=== PATIENT | female | born 1990 | race Caucasian/White ===

== ENCOUNTER 2022-04-21 14:58 | Emergency (ER) | payer BC, OTHER ==
--- OUTSIDE RECORDS SUMMARY | 2022-04-21 15:08 | XMS REPORT | Continuity of Care Document ---
:1990 Author Organization [facility] t Address [address] [place] [address] Care Team Providers Name Role Phone Unavailable Unavailable Unavailable Payers Payer Name Policy Type Policy Number Effective Date Expiration Date S ource Problems This patient has no known problems. Allergies, Adverse Reactions, Alerts Allergy Allergy Status Severity Reaction(s) Onset Inactive Treating Comm ents Source Name Type Date Date Clinician No Known DA Active U 2015-03 [facility] [place] Medications This patient has no known medications. Procedures This patient has no known procedures. Results Test Description Test Time Test Comments Results Result Comments Source CBC W/AUTO DIFF 2018-04-30 07:40:00 Test Item Value Reference Range Interpretation Comme nts WHITE BLOOD CELL (test code = WBC) 14.0 K/mm3 6.6-12.1 H RED BLOOD CELL (test code = RBC) 3.16 M/mm3 3.45-5.01 L HEMOGLOBIN (test code = HGB) 9.4 g/dL 10.7-13.9 L HEMATOCRIT (test code = HCT) 29.6 % 32.1-42.1 L MEAN CELL VOLUME (test code = MCV) 94 fL 84.1-94.8 N MEAN CELL HGB (test code = MCH) 29.7 pg 27-35 N MEAN CELL HGB CONCETRATION (test code = MCHC) 31.8 gm/dL 32.2-34. 1 L RED CELL DISTRIBUTION WIDTH (test code = RDW) 14.6 % 12.4-16. 5 N PLATELET COUNT (test code = PLT) 180 K/mm3 133-385 N IMMATURE PLATELET FRACTION (test code = IPF) 0.0 % 0.0-10.8 N MEAN PLATELET VOLUME (test code = MPV) 10.9 fl 9.1-12.7 N NEUTROPHIL % (test code = NT%) 76.5 % 56.5-79.4 N LYMPHOCYTE % (test code = LY%) 14.9 % 14.3-34.3 N MONOCYTE % (test code = MO%) 7.5 % 5.1-10.4 N EOSINOPHIL % (test code = EO%) 0.4 % 0.1-3.0 N BASOPHIL % (test code = BA%) 0.1 % 0.1-1.0 N NEUTROPHIL # (test code = NT#) 10.7 K/mm3 LYMPHOCYTE # (test code = LY#) 2.1 K/mm3 MONOCYTE # (test code = MO#) 1.1 K/mm3 EOSINOPHIL # (test code = EO#) 0.05 K/mm3 BASOPHIL # (test code = BA#) 0.0 K/mm3 RBC MORPHOLOGY REQUIRED (test code = RBCM) NORMAL NORMAL PLATELET MORPHOLOGY REQUIRED (test code = PLTMR) NORMAL VAL L URINALYSIS W/O [id number] 12:26:00 Test Item Value Reference Range Interpretation Comments UA GLUCOSE DIPSTICK (test code = NEGATIVE NEGATIVE DGLUU) UA KETONE DIPSTICK (test code = NEGATIVE NEGATIVE KETU) UA PROTEIN DIPSTICK (test code = NEGATIVE NEGATIVE PROU) IS NURSE PERFORMING TEST? NAG HEPATITIS B [id number] 12:11:00 Test Item Value Reference Range Interpretation Comments AG HEPATITIS B SURFACE (test code NONREACTIVE NONREACTIVE = HBSAG) IS CONSENT FORM SIGNED FOR HIV TESTING? TELLOB HEPATITIS C [id number] 12:11:00 Test Item Value Reference Range Interpretation Comments AB HEPATITIS C (test code = NONREACTIVE NONREACTIVE HCVAB) SIGNAL TO CUTOFF (test code = 0.10 <0.80 N CUTOFF) IS CONSENT FORM SIGNED FOR HIV TESTING? BRYCE [id number] 12:11:00 Test Item Value Reference Range Interpretation Comments AB TREPONEMA (test code = TREPAB) NONREACTIVE NONREACTIVE IS CONSENT FORM SIGNED FOR HIV TESTING? YAB HIV 1 12:11:00 Test Item Value Reference Range Interpretation Comments AB HIV 1 2 (test NONREACTIVE NONREACTIVE Done by [facility] code = [id number]) 4th Gen HIV Ag/Ab Combo Screen IS CONSENT FORM SIGNED FOR HIV TESTING? YAG HEPATITIS B [id number] 11:42:00 Test Item Value Reference Range Interpretation Comments AG HEPATITIS B SURFACE (test code NONREACTIVE NONREACTIVE = HBSAG) IS CONSENT FORM SIGNED FOR HIV TESTING? YAB HEPATITIS C [id number] 11:42:00 Test Item Value Reference Range Interpretation Comments AB HEPATITIS C (test code = HCVAB) NONREACTIVE SIGNAL TO CUTOFF (test code = CUTOFF) <0.80 IS CONSENT FORM SIGNED FOR HIV TESTING? YAB [id number] 11:42:00 Test Item Value Reference Range Interpretation Comments AB TREPONEMA (test code = TREPAB) NONREACTIVE NONREACTIVE IS CONSENT FORM SIGNED FOR HIV TESTING? YAB HIV 1 11:42:00 Test Item Value Reference Range Interpretation Comments AB HIV 1 2 (test code = [id number]) NONREACTIVE IS CONSENT FORM SIGNED FOR HIV TESTING? YCBC W/AUTO [id number] 11:23:00 Test Item Value Reference Range Interpretation Comments WHITE BLOOD CELL (test code = WBC) 6.7 K/mm3 6.6-12.1 N RED BLOOD CELL (test code = RBC) 4.25 M/mm3 3.45-5.01 N HEMOGLOBIN (test code = HGB) 12.6 g/dL 10.7-13.9 N HEMATOCRIT (test code = HCT) 39.2 % 32.1-42.1 N MEAN CELL VOLUME (test code = MCV) 92 fL 84.1-94.8 N MEAN CELL HGB (test code = MCH) 29.6 pg 27-35 N MEAN CELL HGB CONCETRATION (test 32.1 gm/dL 32.2-34.1 L code = MCHC) RED CELL DISTRIBUTION WIDTH (test 14.6 % 12.4-16.5 N code = RDW) PLATELET COUNT (test code = PLT) 205 K/mm3 133-385 N IMMATURE PLATELET FRACTION (test 0.0 % 0.0-10.8 N code = IPF) MEAN PLATELET VOLUME (test code = 10.7 fl 9.1-12.7 N MPV) NEUTROPHIL % (test code = NT%) 62.2 % 56.5-79.4 N LYMPHOCYTE % (test code = LY%) 24.5 % 14.3-34.3 N MONOCYTE % (test code = MO%) 10.5 % 5.1-10.4 H EOSINOPHIL % (test code = EO%) 0.7 % 0.1-3.0 N BASOPHIL % (test code = BA%) 0.6 % 0.1-1.0 N NEUTROPHIL # (test code = NT#) 4.2 K/mm3 LYMPHOCYTE # (test code = LY#) 1.7 K/mm3 MONOCYTE # (test code = MO#) 0.7 K/mm3 EOSINOPHIL # (test code = EO#) 0.05 K/mm3 BASOPHIL # (test code = BA#) 0.0 K/mm3 RBC MORPHOLOGY REQUIRED (test code NORMAL NORMAL = RBCM) PLATELET MORPHOLOGY REQUIRED (test NORMAL NORMAL code = PLTMR)
[2022-04-21 16:18] LABS: Urine Blood Trace-intact (Negative); Urine Glucose Negative (Negative); Urine Protein Negative (Negative); Urine pH 6.5 (5.0-7.0)
[2022-04-21 16:31] LABS: Absolute Lymphocytes (CBC) 2.9 K/uL (0.7-4.9); Hematocrit 42.8 % (36.0-45.0); Lymphocytes % 43.3 % (15.3-44.8); MCV 89.7 fL (80-100); MPV 8.7 fL (7.6-11.3); RBC Red Blood Cell Count 4.77 M/uL (3.86-4.86)
--- NOTE | 2022-04-21 16:32 | RAD REPORT ---
EXAM DESCRIPTION: CT - Head Brain Wo Cont - 04/21/2022 3:39 pm CLINICAL HISTORY: Headache. Left arm numbness. Hypertension. COMPARISON: Head Brain Wo Cont dated 04/04/2019; HEAD BRAIN W O CONTRAST dated 03/28/2009 TECHNIQUE: Noncontrast head CT images ad were obtained without IV contrast. Multiplanar reformats we re generated and reviewed. All CT scans are performed using dose optimization technique as appropriate and may include automated exposure control or mA/KV adjustment according to patient size. FINDINGS: No intracranial hemorrhage, mass, or edema. Midline structures are unremarkable. Normal ventricular caliber for age. Hines-white matter differentiation is preserved, without evidence of acute infarct. No abnormal extra- axial fluid collections. Mastoid air cells and visualized portions of the paranasal sinuses are clear. No acute bony findings. IMPRESSION: No evidence of an acute intracranial process.
[2022-04-21 16:38] LABS: Protime INR 1.01
[2022-04-21 16:41] LABS: Barbiturates NEGATIVE (NEGATIVE); Benzodiazepines NEGATIVE (NEGATIVE); Cocaine NEGATIVE (NEGATIVE); METHAMPHETAM POSITIVE (NEGATIVE); Methadone NEGATIVE (NEGATIVE); Opiates NEGATIVE (NEGATIVE); Phencyclidine NEGATIVE (NEGATIVE); THC Cannibis NEGATIVE (NEGATIVE)
[2022-04-21 17:03] LABS: BUN Blood Urea Nitrogen 12 mg/dL (7-18); Bicarbonate 26 mmol/L (21-32); Glomerular Filtration Rate 79 ml/min (=/>90); Glucose Level 89 mg/dL (74-106); Magnesium 2.2 mg/dL (1.6-2.4); Potassium 3.3 mmol/L (3.5-5.1); Sodium Level 139 mmol/L (136-145)
[2022-04-21 17:04] LABS: Troponin High Sensitivity < 3.0 pg/mL (<58.9)
[2022-04-21] MEDS ORDERED: ACETAMINOPHEN 500 MG TAB ONE (17:29)
[2022-04-21] MEDS ORDERED: METOCLOPRAMIDE 10 MG/2mL INJ ONE (17:29)
[2022-04-21] MEDS ORDERED: TENECTEPLASE 50 MG/10 ML VIAL IV ONE (17:44)
--- NOTE | 2022-04-21 18:08 | RAD REPORT ---
[facility] DES[facility]31 [facility] CLINICAL HISTORY: CHEST PAIN COMPARISON: CHEST SINGLE VIEW dated 02/06/2012 TECHNIQUE: Portable AP view of the chest. FINDINGS: The lungs are clear. No pneumothorax or effusion. The cardiomediastinal contours are unrem arkable. IMPRESSION: No acute cardiopulmonary process.
--- NOTE | 2022-04-21 18:34 | ER ---
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 Coronavirus screen: At this time, the client does not indicate any symptoms associated with coronavirus-19. Ebola Screen: No symptoms or risks identified at this time. Initial Sepsis Screen: Does the patient meet any 2 criteria? No. Patient's initial sepsis screen is negative. Does the patient have a suspected source of infection? No. Patient's initial sepsis screen is negative. Risk Assessment: Do you want to hurt yourself or someone else? Patient reports no desire to harm self or others. Onset of symptoms was April 21, 2022. 15:26 Method Of Arrival: Ambulatory ap3 15:26 Acuity: NELA 2 ap3 Triage Assessment: 15:30 General: Appears in no apparent distress. Behavior is calm, cooperative. Pain: ap3 Complains of pain in headache. Neuro: Level of Consciousness is awake, alert, obeys commands, Oriented to person, place, time, situation, Gait is steady. Cardiovascular: Patient's skin is warm and dry. Respiratory: Airway is patent Respiratory effort is even, unlabored, Respiratory pattern is regular, symmetrical. DIRECTOR INDUSTRIAL NURSING: 15:31 LMP 04/20/2022 ap3 Historical: - Allergies: 15:29 No Known Allergies; ap3 - Home Meds: 15:29 Lexapro Oral [Active]; Adderall XR Oral [Active]; BuSpar Oral [Active]; Marylu Oral ap3 [Active]; control [Active]; - PMHx: 15:29 Heart Murmur; Seizures; syncope; ap3 - Immunization history:: Client reports having NOT received the Covid vaccine. - Social history:: Smoking status: Patient denies any tobacco usage or history of. Patient uses. Screenin:31 Abuse screen: Denies threats or abuse. Nutritional screening: No deficits noted. ap3 Tuberculosis screening: No symptoms or risk factors identified. 16:57 [facility] ED Fall Risk Assessment (Adult) History of falling in the last 3 months, bp including since admission No falls in past 3 months (0 pts). Assessment: 15:30 General: SEE TRIAGE NOTE. bp 16:56 Reassessment: PT RETURNED FROM CT. PROVIDER AT B/S. PER NEURO, TNKASE RECOMMENDED. bp 17:30 Reassessment: CONSENT FOR TNKASE SIGNED AND WITNESSED. TNKASE ADMINISTERED. NIHSS 1. bp Neuro: 20:46 General: Behavior is calm, cooperative, appropriate for age. Pain: Denies pain. Neuro: tw5 Level of Consciousness is awake, alert, obeys commands, Oriented to person, place, time, situation. 22:00 Neuro: Level of Consciousness is awake, alert, obeys commands, Oriented to person, jb4 place, time, situation, Table Games Dual Rate Supervisor are equal bilaterally Moves all extremities. Full function Speech is normal, Facial symmetry appears normal, Pupils are PERRLA, Intact Tingling in left arm. 22:00 Reassessment: Pt reports worsening neck pain, provider notified, see MAR for orders. jb4 22:05 Reassessment: Patient appears in no apparent distress at this time. Patient and/or jb4 family updated on plan of care and expected duration. Pain level reassessed. Patient is alert, oriented x 3, equal unlabored respirations, skin warm/dry/pink. 22:15 Reassessment: attempted to call report to [facility], instructed to call back in 20 jb4 minutes. 22:55 General: "My neck pain is getting worse." Provider notified. Dr. Adame evaluated her tw5 prior to her departure . Vital Signs: 15:26 BP 175 / 104; Pulse 88; Resp 17; Temp 98.8; Pulse Ox 99% ; Weight 72.57 kg; Height 5 ap3 ft. 7 in. (170.18 cm); 17:00 BP 156 / 95; Pulse 78; Resp 16; Pulse Ox 100% ; bp 17:30 BP 156 / 99; Pulse 82; Resp 16; Pulse Ox 100% ; bp 22:00 BP 129 / 81; Pulse 87; Resp 16; Pulse Ox 100% on R/A; jb4 15:26 Body Mass Index 25.06 (72.57 kg, 170.18 cm) ap3 NIH Stroke Scale Scores: 16:30 NIHSS Score: 1 cp 17:30 NIHSS Score: 1 bp 22:11 NIHSS Score: 0 jb4 ED Course: 15:00 Patient arrived in ED. am2 15:15 Joon Taylor PA is PHCP. cp 15:15 Joon Tiwari MD is Attending Physician. cp 15:29 Triage completed. ap3 15:31 Arm band placed on right wrist. ap3 16:01 Joel Ivy, YASH is Primary Nurse. bp 16:30 Urine --Ancillary (enter results) Sent. bp 16:57 Patient has correct armband on for positive identification. Bed in low position. Call bp light in reach. Side rails up X2. Adult w/ patient. 16:57 Inserted saline lock: 20 gauge in right forearm, using aseptic technique. Blood bp collected. 18:32 Glendy Morales PA-C is Hospitalizing Provider. cp 19:10 Patricio Garcia is Hospitalizing Provider. cp 20:50 SARS RAPID Sent. tw5 22:00 No provider procedures requiring assistance completed. Patient transferred, IV remains jb4 in place. Administered Medications: 16:14 CANCELLED (Physician Discretion): Labetalol 10 mg IV at calculated rate once cp 16:30 Drug: Reglan (metoCLOPramide) 10 mg Route: IVP; Site: right forearm; bp 16:30 Drug: Tylenol 1000 mg Route: PO; bp 17:30 Drug: TNK FOR STROKE - Tenecteplase 0.25 mg/kg {Co-Signature: yonatan (Jeanie Ma bp RN).} Route: IV; Rate: per protocol; Site: right antecubital; 18:45 Follow up: IV Status: Completed infusion bp 18:30 Drug: Potassium Effervescent Tablet 50 mEq Route: PO; bp 18:45 Follow up: Response: No adverse reaction bp 18:30 Drug: foLIC Acid 1 mg Route: IVPB; Site: right antecubital; bp 18:45 Follow up: IV Status: Completed infusion; IV Intake: 50ml bp 22:05 Drug: Wall (HYDROcodone-acetaminophen) (7.5 mg-325 mg) 1 tabs Route: PO; jb4 22:56 Follow up: Response: No adverse reaction; Pain is unchanged, physician notified tw5 22:56 Drug: morphine 4 mg Route: IVP; Infused Over: 4 mins; Site: right antecubital; tw5 22:56 Drug: Zofran (Ondansetron) 4 mg Route: IVP; Site: right antecubital; tw5 Medication: 22:56 VIS not applicable for this client. tw5 Intake: 18:45 IV: 50ml; Total: 50ml. bp Outcome: 18:33 Decision to Hospitalize by Provider. cp 20:36 ER care complete, transfer ordered by MD. cp 22:56 Transferred by ground EMS tw5 22:56 Condition: good 22:56 Instructed on the need for transfer, Demonstrated understanding of instructions. 23:02 Patient left the ED. tw5 NIH Stroke Scale - NIH Stroke Score Date: 04/21/2022 Time: 16:30 Total Score = 1 1a. Level of Consciousness (LOC) - 0(Alert) 1b. Level of Consciousness (LOC) (Month \\T\\ Age) - 0(Both) 1c. LOC Commands (Open \\T\\ Closes Eyes/Employment Law Specialist) - 0(Both) 2. Best Gaze (Lateral Gaze Paresis) - 0(Normal) 3. Visual Field Loss - 0(No visual loss) 4. Facial Palsy - 0(Normal) 5a. Left Arm: Motor (10-second hold) - 0(No drift) 5b. Right Arm: Motor (10-second hold) - 0(No drift) 6a. Left Leg: Motor (5-second hold - always test supine) - 0(No drift) 6b. Right Leg: Motor (5-second hold - always test supine) - 0(No drift) 7. Limb Ataxia (finger/nose \\T\\ heel/suresh - test with eyes open) - 0(Absent) 8. Sensory Loss (pinprick arms/legs/face) - 1(Mild to moderate loss) 9. Best Language: Aphasia (description/naming/reading) - 0(No aphasia) 10. Dysarthria (speech clarity - read or repeat words) - 0(Normal) 11. Extinction and Inattention (visual/tactile/auditory/spatial/personal) - 0(No abnormality) Initials: cp NIH Stroke Scale - NIH Stroke Score Date: 04/21/2022 Time: 17:30 Total Score = 1 1a. Level of Consciousness (LOC) - 0(Alert) 1b. Level of Consciousness (LOC) (Month \\T\\ Age) - 0(Both) 1c. LOC Commands (Open \\T\\ Closes Eyes/Employment Law Specialist) - 0(Both) 2. Best Gaze (Lateral Gaze Paresis) - 0(Normal) 3. Visual Field Loss - 0(No visual loss) 4. Facial Palsy - 0(Normal) 5a. Left Arm: Motor (10-second hold) - 0(No drift) 5b. Right Arm: Motor (10-second hold) - 0(No drift) 6a. Left Leg: Motor (5-second hold - always test supine) - 0(No drift) 6b. Right Leg: Motor (5-second hold - always test supine) - 0(No drift) 7. Limb Ataxia (finger/nose \\T\\ heel/suresh - test with eyes open) - 0(Absent) 8. Sensory Loss (pinprick arms/legs/face) - 1(Mild to moderate loss) 9. Best Language: Aphasia (description/naming/reading) - 0(No aphasia) 10. Dysarthria (speech clarity - read or repeat words) - 0(Normal) 11. Extinction and Inattention (visual/tactile/auditory/spatial/personal) - 0(No abnormality) Initials: bp NIH Stroke Scale - NIH Stroke Score Date: 04/21/2022 Time: 22:11 Total Score = 0 1a. Level of Consciousness (LOC) - 0(Alert) 1b. Level of Consciousness (LOC) (Month \\T\\ Age) - 0(Both) 1c. LOC Commands (Open \\T\\ Closes Eyes/Employment Law Specialist) - 0(Both) 2. Best Gaze (Lateral Gaze Paresis) - 0(Normal) 3. Visual Field Loss - 0(No visual loss) 4. Facial Palsy - 0(Normal) 5a. Left Arm: Motor (10-second hold) - 0(No drift) 5b. Right Arm: Motor (10-second hold) - 0(No drift) 6a. Left Leg: Motor (5-second hold - always test supine) - 0(No drift) 6b. Right Leg: Motor (5-second hold - always test supine) - 0(No drift) 7. Limb Ataxia (finger/nose \\T\\ heel/suresh - test with eyes open) - 0(Absent) 8. Sensory Loss (pinprick arms/legs/face) - 0(Normal) 9. Best Language: Aphasia (description/naming/reading) - 0(No aphasia) 10. Dysarthria (speech clarity - read or repeat words) - 0(Normal) 11. Extinction and Inattention (visual/tactile/auditory/spatial/personal) - 0(No abnormality) Initials: jb4 Signatures: Joon Taylor PA PA cp Bryson, James RN RN jb4 Gisel Bill am2 Joel Ivy RN RN bp Gisel Shipley RN RN ap3 Lanie Taveras tw5 Jeanie Ma RN ph Corrections: (The following items were deleted from the chart) 22:13 22:00 Neuro: Level of Consciousness is awake, alert, obeys commands, Oriented jb4 to person, place, time, situation, Table Games Dual Rate Supervisor are equal bilaterally Moves all extremities. Full function Speech is normal, Facial symmetry appears normal, Pupils are PERRLA, Intact Tingling in left arm jb4
--- NOTE | 2022-04-21 18:34 | EDPHYS ---
Physician Documentation [facility] Name: Shalonda Mederos Age: 31 yrs Sex: Female : 1990 Arrival Date: 04/21/2022 Time: 15:00 Bed 7 Private MD: ED Physician Joon Tiwari HPI: 04/21 15:35 This 31 yrs old Female presents to ER via Ambulatory with complaints of Numbness Of Arm cp - left, High Blood Pressure. 15:35 The patient's problem is reported as paresthesias, in left upper extremity. cp 15:35 Onset: The symptoms/episode began/occurred today, at 1430. Duration: The episode is cp continuous. Context: symptoms became apparent on April 21, 2022, at 14:30. occurred at school, Possible contributing factors include: headache for several days, increased stress while going through divorce. Associated signs and symptoms: Pertinent positives: blurred vision, weakness, elevated blood pressure, Pertinent negatives: abdominal pain, chest pain, seizure, shortness of breath. Severity of symptoms: in the emergency department the symptoms are unchanged. Patient's baseline: Neuro: alert and fully oriented, Motor: no deficits, Ambulation: walks without assistance, Speech: normal. 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 - Social history:: Smoking status: Patient denies any tobacco usage or history of. Patient uses. ROS: 15:40 Constitutional: Negative for body aches, chills, fever, poor PO intake. cp 15:40 Eyes: Positive for blurry vision, Negative for discharge, pain, redness, vision loss. cp 15:40 ENT: Negative for drainage from ear(s), ear pain, sore throat, difficulty swallowing, difficulty handling secretions. 15:40 Cardiovascular: Negative for chest pain, edema, palpitations. 15:40 Respiratory: Negative for cough, shortness of breath, wheezing. 15:40 Abdomen/GI: Negative for abdominal pain, vomiting, diarrhea, constipation. 15:40 : Negative for urinary symptoms. 15:40 Neuro: Positive for headache, numbness, weakness, of the left arm, Negative for altered mental status, dizziness, seizure activity, syncope. 15:40 All other systems are negative. Exam: 15:43 Constitutional: The patient appears in no acute distress, alert, awake, cp non-diaphoretic, non-toxic, well developed, well nourished. 15:43 Head/Face: Normocephalic, atraumatic. cp 15:43 Eyes: Periorbital structures: appear normal, Pupils: equal, round, and reactive to light and accomodation, Extraocular movements: intact throughout, Conjunctiva: normal, no exudate, no injection, Sclera: no appreciated abnormality, Lids and lashes: appear normal, bilaterally. 15:43 ENT: External ear(s): are unremarkable, Nose: is normal, Mouth: Lips: moist, Oral mucosa: pink and intact, moist, Posterior pharynx: Airway: no evidence of obstruction, patent, swelling, is not appreciated, erythema, is not appreciated, exudate, is not appreciated. 15:43 Neck: ROM/movement: is normal, is supple, without pain, no range of motions limitations, no meningismus. 15:43 Chest/axilla: Inspection: normal. 15:43 Cardiovascular: Rate: normal, Rhythm: regular, Heart sounds: murmur, systolic, Edema: is not appreciated, JVD: is not appreciated. 15:43 Respiratory: the patient does not display signs of respiratory distress, Respirations: normal, no use of accessory muscles, no retractions, labored breathing, is not present, Breath sounds: are clear throughout, no decreased breath sounds, no stridor, no wheezing. 15:43 Abdomen/GI: Inspection: abdomen appears normal, Palpation: abdomen is soft and non-tender, in all quadrants. 15:43 Back: pain, is absent, ROM is normal. 15:43 Skin: cellulitis, is not appreciated, no rash present. 15:43 Neuro: Orientation: to person, place \T\ time. Mentation: is normal, Cerebellar function: Romberg testing is negative, normal finger to nose testing, heel to suresh testing is normal, Motor: moves all fours, no focal deficits, reports left arm feels weaker than right, Sensation: numbness, that is moderate, of the left arm. 16:26 ECG was reviewed by the Attending Physician. cp 16:35 Radiologist reports: no acute findings cp Vital Signs: 15:26 BP 175 / 104; Pulse 88; Resp 17; Temp 98.8; Pulse Ox 99% ; Weight 72.57 kg; Height 5 ap3 ft. 7 in. (170.18 cm); 17:00 BP 156 / 95; Pulse 78; Resp 16; Pulse Ox 100% ; bp 17:30 BP 156 / 99; Pulse 82; Resp 16; Pulse Ox 100% ; bp 22:00 BP 129 / 81; Pulse 87; Resp 16; Pulse Ox 100% on R/A; jb4 15:26 Body Mass Index 25.06 (72.57 kg, 170.18 cm) ap3 NIH Stroke Scale Scores: 16:30 NIHSS Score: 1 cp 17:30 NIHSS Score: 1 bp 22:11 NIHSS Score: 0 jb4 MDM: 15:49 Patient medically screened. tammy 16:29 ED course: consult with DR Mei who recommends CT stroke protocol and TNK if cp patient has deficit. 16:56 ED course: Discussed results of negative head CT, EKG negative for arrythmia and cp recommendation of DR Mei for administration of TNK. Patient would like to discuss to mother at this time and will notify YASH Maldonado of decision. 17:15 ED course: Discussed recommendation of TNK by neurology, DR Mei with risks of cp treatment and not treating. Patient reports continued numbness left arm and weakness. Patient requests to speak with DR Tiwari, before deciding on TNK treatment. 17:25 ED course: Patient requested to speak with attending physician DR Tiwari who cp discussed TNK treatment with patient and recommends administration of TNK. Patient agrees with treatment plan. 18:56 ED course: reevaluation: Patient reports weakness resolved and numbness of arm markedly cp improved but not resolved at this time. Will admit and continue to monitor. 20:35 Data reviewed: vital signs, nurses notes, lab test result(s), EKG, radiologic studies, cp CT scan, plain films. 20:35 Consideration of Admission/Observation transfer for neurosurgery consultation. cp Management of patient was discussed with the following: Medical Assembly: DR Mei. I considered the following discharge prescriptions or medication management in the emergency department Medications were administered in the Emergency Department. See MAR. Discussion of test interpretation with radiology: I had a discussion with radiology regarding a test interpretation. results of CT neck angio that showed concern for dissection at V2. Counseling: I had a detailed discussion with the patient and/or guardian regarding: the historical points, exam findings, and any diagnostic results supporting the discharge/admit diagnosis, lab results, radiology results, the need to transfer to another facility, [facility] does not immediately have the required specialist. Response to treatment: the patient's symptoms have markedly improved after treatment. 22:05 ED course: consult with DR Dorman, neurology \T\[facility], after discussion of labs cp and radiology results, care given with administration of TNK and patient's symptom improvement, he will accept for transfer. 04/21 15:30 Order name: Basic Metabolic Panel cp 04/21 15:30 Order name: CBC with Diff cp 04/21 15:30 Order name: D-Dimer cp 04/21 15:30 Order name: Magnesium cp 04/21 15:30 Order name: PT-INR cp 04/21 15:30 Order name: Troponin HS cp 04/21 15:30 Order name: UDS cp 04/21 16:19 Order name: Urine Dipstick-Ancillary; Complete Time: 16:40 EDMS 04/21 16:24 Order name: Urine --Ancillary (enter results) em1 04/21 16:32 Order name: Urine --Ancillary; Complete Time: 16:40 EDMS 04/21 16:33 Order name: CBC with Automated Diff; Complete Time: 16:40 EDMS 04/21 16:39 Order name: Protime (+INR); Complete Time: 16:40 EDMS 04/21 16:39 Order name: D-Dimer; Complete Time: 16:40 EDMS 04/21 16:42 Order name: Urine Drug Screen; Complete Time: 17:44 EDMS 04/21 17:44 Interpretation: Normal except: METHAMPHETAMINE POSITIVE. cp 04/21 15:30 Order name: XRAY Chest (1 view) cp 04/21 15:59 Order name: MRI - Brain Wo Cont cp 04/21 16:29 Order name: CT Stroke Brain w/o Contrast cp 04/21 16:32 Order name: CT; Complete Time: 16:40 EDMS 04/21 16:41 Interpretation: Report reviewed. cp 04/21 17:04 Order name: Basic Metabolic Panel; Complete Time: 17:44 EDMS 04/21 17:44 Interpretation: Normal except: K 3.3; CL 108; GFR 79. cp 04/21 17:04 Order name: Troponin High Sensitivity; Complete Time: 17:44 EDMS 04/21 17:04 Order name: Magnesium; Complete Time: 17:44 EDMS 04/21 17:59 Order name: CT Head Angio cp 04/21 17:59 Order name: CT Neck Angio cp 04/21 18:08 Order name: RAD; Complete Time: 18:27 EDMS 04/21 20:09 Order name: CT; Complete Time: 22:00 EDMS 04/21 20:16 Order name: CT; Complete Time: 22:00 EDMS 04/21 20:20 Order name: MRI; Complete Time: 22:00 EDMS 04/21 22:01 Interpretation: Report reviewed. cp 04/21 20:34 Order name: SARS RAPID rv1 04/21 21:01 Order name: SARS-COV-2 Antigen Rapid; Complete Time: 22:00 EDMS 04/21 15:30 Order name: EKG; Complete Time: 15:31 cp 04/21 15:30 Order name: Cardiac monitoring; Complete Time: 16:30 cp 04/21 15:30 Order name: EKG - Nurse/Tech; Complete Time: 16:30 cp 04/21 15:30 Order name: IV Saline Lock; Complete Time: 16:30 cp 04/21 15:30 Order name: Labs collected and sent; Complete Time: 16:30 cp 04/21 15:30 Order name: O2 Per Protocol; Complete Time: 16:30 cp 04/21 15:30 Order name: O2 Sat Monitoring; Complete Time: 16:30 cp 04/21 15:30 Order name: Urine Test (obtain specimen); Complete Time: 16:24 cp 04/21 15:30 Order name: Urine Dipstick-Ancillary (obtain specimen); Complete Time: 16:24 cp EC:26 Rate is 67 beats/min. Rhythm is regular. NV interval is normal. QRS interval is normal. cp QT interval is normal. T waves are Inverted in lead aVR. Reviewed by me. Administered Medications: 16:14 CANCELLED (Physician Discretion): Labetalol 10 mg IV at calculated rate once cp 16:30 Drug: Reglan (metoCLOPramide) 10 mg Route: IVP; Site: right forearm; bp 16:30 Drug: Tylenol 1000 mg Route: PO; bp 17:30 Drug: TNK FOR STROKE - Tenecteplase 0.25 mg/kg {Co-Signature: ph (Jeanie Ma bp RN).} Route: IV; Rate: per protocol; Site: right antecubital; 18:45 Follow up: IV Status: Completed infusion bp 18:30 Drug: Potassium Effervescent Tablet 50 mEq Route: PO; bp 18:45 Follow up: Response: No adverse reaction bp 18:30 Drug: foLIC Acid 1 mg Route: IVPB; Site: right antecubital; bp 18:45 Follow up: IV Status: Completed infusion; IV Intake: 50ml bp 22:05 Drug: [place] (HYDROcodone-acetaminophen) (7.5 mg-325 mg) 1 tabs Route: PO; jb4 22:56 Follow up: Response: No adverse reaction; Pain is unchanged, physician notified tw5 22:56 Drug: morphine 4 mg Route: IVP; Infused Over: 4 mins; Site: right antecubital; tw5 22:56 Drug: Zofran (Ondansetron) 4 mg Route: IVP; Site: right antecubital; tw5 Disposition Summary: 04/21/22 20:36 Transfer Ordered Transfer Location: [facility] cp Reason: Higher level of care cp Condition: Stable(04/21/22 20:36) cp Problem: new(04/21/22 20:36) cp Symptoms: have improved(04/21/22 20:36) cp Accepting Physician: DR August Dorman(04/21/22 23:02) tw5 Diagnosis - Paresthesia of skin - left arm(04/21/22 20:36) cp - Weakness(04/21/22 20:36) cp - Headache(04/21/22 20:36) cp - Possible Dissection mid to distal left V2 cp Forms: - Medication Reconciliation Form cp - SBAR form cp NIH Stroke Scale - NIH Stroke Score Date: 04/21/2022 Time: 16:30 Total Score = 1 1a. Level of Consciousness (LOC) - 0(Alert) 1b. Level of Consciousness (LOC) (Month \T\ Age) - 0(Both) 1c. LOC Commands (Open \T\ Closes Eyes/Adult Basic Studies Teacher) - 0(Both) 2. Best Gaze (Lateral Gaze Paresis) - 0(Normal) 3. Visual Field Loss - 0(No visual loss) 4. Facial Palsy - 0(Normal) 5a. Left Arm: Motor (10-second hold) - 0(No drift) 5b. Right Arm: Motor (10-second hold) - 0(No drift) 6a. Left Leg: Motor (5-second hold - always test supine) - 0(No drift) 6b. Right Leg: Motor (5-second hold - always test supine) - 0(No drift) 7. Limb Ataxia (finger/nose \T\ heel/suresh - test with eyes open) - 0(Absent) 8. Sensory Loss (pinprick arms/legs/face) - 1(Mild to moderate loss) 9. Best Language: Aphasia (description/naming/reading) - 0(No aphasia) 10. Dysarthria (speech clarity - read or repeat words) - 0(Normal) 11. Extinction and Inattention (visual/tactile/auditory/spatial/personal) - 0(No abnormality) Initials: cp NIH Stroke Scale - NIH Stroke Score Date: 04/21/2022 Time: 17:30 Total Score = 1 1a. Level of Consciousness (LOC) - 0(Alert) 1b. Level of Consciousness (LOC) (Month \T\ Age) - 0(Both) 1c. LOC Commands (Open \T\ Closes Eyes/Adult Basic Studies Teacher) - 0(Both) 2. Best Gaze (Lateral Gaze Paresis) - 0(Normal) 3. Visual Field Loss - 0(No visual loss) 4. Facial Palsy - 0(Normal) 5a. Left Arm: Motor (10-second hold) - 0(No drift) 5b. Right Arm: Motor (10-second hold) - 0(No drift) 6a. Left Leg: Motor (5-second hold - always test supine) - 0(No drift) 6b. Right Leg: Motor (5-second hold - always test supine) - 0(No drift) 7. Limb Ataxia (finger/nose \T\ heel/suresh - test with eyes open) - 0(Absent) 8. Sensory Loss (pinprick arms/legs/face) - 1(Mild to moderate loss) 9. Best Language: Aphasia (description/naming/reading) - 0(No aphasia) 10. Dysarthria (speech clarity - read or repeat words) - 0(Normal) 11. Extinction and Inattention (visual/tactile/auditory/spatial/personal) - 0(No abnormality) Initials: bp NIH Stroke Scale - NIH Stroke Score Date: 04/21/2022 Time: 22:11 Total Score = 0 1a. Level of Consciousness (LOC) - 0(Alert) 1b. Level of Consciousness (LOC) (Month \T\ Age) - 0(Both) 1c. LOC Commands (Open \T\ Closes Eyes/Adult Basic Studies Teacher) - 0(Both) 2. Best Gaze (Lateral Gaze Paresis) - 0(Normal) 3. Visual Field Loss - 0(No visual loss) 4. Facial Palsy - 0(Normal) 5a. Left Arm: Motor (10-second hold) - 0(No drift) 5b. Right Arm: Motor (10-second hold) - 0(No drift) 6a. Left Leg: Motor (5-second hold - always test supine) - 0(No drift) 6b. Right Leg: Motor (5-second hold - always test supine) - 0(No drift) 7. Limb Ataxia (finger/nose \T\ heel/suresh - test with eyes open) - 0(Absent) 8. Sensory Loss (pinprick arms/legs/face) - 0(Normal) 9. Best Language: Aphasia (description/naming/reading) - 0(No aphasia) 10. Dysarthria (speech clarity - read or repeat words) - 0(Normal) 11. Extinction and Inattention (visual/tactile/auditory/spatial/personal) - 0(No abnormality) Initials: jb4 Signatures: Dispatcher [employer] EDJoon Patton MD MD cha Page, Corey, PA PA cp Garcia, Cindy, Mike Kearney RN, RN RN jb4 Joel Ivy RN RN bp Prokisch, Amanda, RN RN ap3 Lanie Taveras tw5 Glendy Morales PA-C PA-C sb4 Jeanie Ma RN ph Corrections: (The following items were deleted from the chart) 16:14 16:00 Labetalol 10 mg IV at calculated rate once ordered. cp cp 16:39 16:20 This 31 yrs old Female presents to ER via Ambulatory with complaints of cp Numbness Of Arm - left, High Blood Pressure. cp 19:11 18:33 Glendy Morales cp cp 20:20 18:33 Intensive Care Unit cp cg 20:20 18:33 cp cg 20:23 18:33 Inpatient Admission cp cp 20:23 18:33 Stable cp cp 20:23 18:33 new cp cp 20:23 18:33 have improved cp cp 20:23 18:33 Standard cp cp 20:23 18:33 Paresthesia of skin - left arm cp cp 20:23 18:33 Weakness cp cp 20:23 18:33 Headache cp cp 20:23 19:11 Patricio Garcia cp cp 20:23 20:20 [facility] ER HOLD cg cp 20:23 20:20 ERHOLD- cg cp 21:55 20:36 Doctor cp cp 23:02 21:55 DR August Dorman cp tw5
[2022-04-21] MEDS ORDERED: FOLIC ACID 1 MG TABLET ONE (18:45)
[2022-04-21] MEDS ORDERED: POTASSIUM 25 MEQ EFFERV TAB ONE (18:46)
--- NOTE | 2022-04-21 19:43 | P.HP ---
Certification for Inpatient Patient admitted to: Observation With expected LOS: <2 Midnights Patient will require the following post-hospital care: None Practitioner: I am a practitioner with admitting privileges, knowledge of patient current condition, hospital course, and medical plan of care. Services: Services provided to patient in accordance with Admission requirements found in Title 42 Section 412.3 of the Code of Federal Regulations Patient History Date of Service: 04/21/22 Reason for admission: CVA Rule Out Allergies No Known Allergies Allergy (Verified 02/06/12 17:43) Home medications list reviewed: Yes - Past Medical/Surgical History Diabetic: No -: ADHD -: Mitral Valve Prolapse Psychosocial/ Personal History: Patient is . She has 2 kids. - Family History Family History: Reviewed- Non-Contributory - Social History Smoking Status: Never smoker Alcohol use: Yes CD- Drugs: No Caffeine use: Yes Place of Residence: Home Review of Systems Neurological: Numbness, Other (Headache) Physical Examination - Vital Signs Temperature: 98.8 F Blood Pressure: 156/99 Pulse: 82 Respirations: 16 Pulse Ox (%): 100 - Physical Exam General: Alert, In no apparent distress HEENT: Atraumatic, PERRLA, Mucous membr. moist/pink, EOMI, Sclerae nonicteric Neck: Supple, 2+ carotid pulse no bruit Respiratory: Clear to auscultation bilaterally, Normal air movement Cardiovascular: Regular rate/rhythm, Normal S1 S2 Gastrointestinal: Normal bowel sounds, No tenderness Musculoskeletal: No tenderness Integumentary: No rashes Neurological: Normal gait, Normal speech, Normal tone, Normal affect - Studies Laboratory Data (last 24 hrs) 04/21/22 16:20: PT 11.1, INR 1.01 04/21/22 16:20: WBC 6.60, Hgb 14.4, Hct 42.8, Plt Count 265 04/21/22 16:20: Sodium 139, Potassium 3.3 L, BUN 12, Creatinine 0.98, Glucose 89, Magnesium 2.2 Assessment and Plan Discharge Plan: Home Plan to discharge in: 24 Hours - Advance Directives Does patient have a Living Will: No Does patient have a Durable POA for Healthcare: No - Code Status/Comfort Care Code Status Assessed: Yes Code Status: Full Code Physician Review: Patient Assessed, Agree with Above Assessment and Plan Critical Care: No Time Spent Managing Pts Care (In Minutes): 50
--- NOTE | 2022-04-21 20:08 | RAD REPORT ---
EXAM DESCRIPTION: CT - Head angio - 04/21/2022 7:24 pm CLINICAL HISTORY: Weakness Left arm numbness COMPARISON: Head Brain Wo Cont dated 04/21/2022; Head Brain Wo Cont dated 04/04/2019 TECHNIQUE: CT angiography of the head was performed with multiplanar reformats and maximum intensity projection reconstructions. Images obtained following intravenous administration of 95 mL Isovue-[address] scans are performed using dose optimization technique as appropriate and may include automated exposure control or mA/KV adjustment according to patient size. FINDINGS: No discrete evidence of large vessel occlusion. Some attenuation left caliber of and anter iorly directed branch out the left MCA superior division (series 612 image [id number]), could relate to distal branching and vessel tortuosity. No evidence of aneurysm is detected. No flow-limiting stenosi s or vascular malformation identified. The right posterior communicating artery is patent while the r ight P1 segment is diminutive (persistent configuration) Antegrade flow is seen in the vertebral arteries. The vertebral arteries are codominant. The visualized dural venous sinuses are patent. IMPRESSION: No evidence of large vessel occlusion or hemodynamically significant stenosis throughout the [place] of [place].
--- NOTE | 2022-04-21 20:15 | RAD REPORT ---
EXAM DESCRIPTION: CT - Neck Angio - 04/21/2022 7:24 pm CLINICAL HISTORY: weakness Left arm numbness COMPARISON: Head angio dated 04/21/2022; Brain Wo Cont dated 04/21/2022 TECHNIQUE: CT angiography of the neck vessels was performed with multiplanar reformats and maximum i ntensity projection reconstructions. Images obtained following intravenous administration of 95 mL Is ovue-300. . All CT scans are performed using dose optimization technique as appropriate and may include automated exposure control or mA/KV adjustment according to patient size. FINDINGS: A left aortic arch is identified with normal three vessel configuration of the great vesse ls. No significant flow abnormality is seen of the common carotid bilaterally. No significant stenosis is identified involving the cervical segments of both internal carotid arteri es. Long segment of sluggish and interrupted flow along the mid to distal left V2 segment, with short seg ments of non opacification. See coronal series 604, images 93- 87. The nondominant right vertebral ar jay is patent, and becomes markedly diminutive following origin of the right PICA intracranially. IMPRESSION: Long segment of sluggish and interrupted flow along the mid to distal left V2, concernin g for a dissection. No significant flow abnormality of the cervical carotid arteries. The findings were communicated to Joon Page on 04/21/2022 at 20:11 hours.
--- NOTE | 2022-04-21 20:20 | RAD REPORT ---
EXAM DESCRIPTION: MRI - Brain Wo Cont - 04/21/2022 7:55 pm CLINICAL HISTORY: HEADACHE COMPARISON: Head CT 04/13/2022 at 9:12 a.m.. TECHNIQUE: Multiplanar multisequence MRI of the brain performed without IV contrast. FINDINGS: No evidence of acute infarct or other diffusion signal abnormality. No evidence of acute intracranial hemorrhage or abnormal extra-axial fluid collections. Ventricular caliber is within normal for age. Midline structures are unremarkable. White matter signal is unremarkable. No mass effect or midline shift. Flow void within the intradural left vertebral artery is not discernible, although it was maintained on the head CT angiogram images. Other Major vascular flow voids are preserved. Mastoid air cells and paranasal sinuses are clear. IMPRESSION: No evidence of acute intracranial hemorrhage or infarct. No evidence of ventriculomegaly or mass effect. Non - discernible flow void within the left intradural vertebral artery. Please refer to dedicated CT neck angiogram report, for detailed findings.
[2022-04-21 21:01] LABS: SARS-CoV-2 Antigen Rapid Res Negative (Negative)
[2022-04-21] MEDS ORDERED: HYDROCODONE/APAP 7.5/325 MG TAB ONE (22:06)
[2022-04-21] MEDS ORDERED: ONDANSETRON 4 MG/2 ML VIAL ONE (22:54)
[2022-04-21] MEDS ORDERED: MORPHINE 4 MG/ML SYR ONE (22:54)
[2022-04-21 23:53] VITALS: TEMP 98.8
[2022-04-21 23:54] VITALS: O2SAT 100
[2022-04-21 23:56] VITALS: BP 129/81
--- NOTE | 2022-04-22 15:22 | EKG ---
Test Date: 2022-04-21 Test Time: 16:21:40 [employer] M[employer]: LEANDRO MEASUREMENT RESULTS: Intervals: Rate: 67 AK: 138 QRSD: 84 QT: 436 QTc: 460 [place]: P: 51 AK: 138 QRS: 48 T: 36 INTERPRETIVE STATEMENTS: Normal sinus rhythm Nonspecific T wave abnormality Prolonged QT Abnormal ECG Compared to ECG 04/04/2019 12:52:10 Prolonged QT interval now present Sinus bradycardia no longer present T-wave abnormality still present Electronically Signed On 04-22-22 15:19:49 [employer]OR [employer]ACER by Ethan Whitehead
== END 2022-04-21 23:02 | disposition short-term general hospital (02) ==
LOC: ER 14:58 → UNDOADMOB 19:36 → ERHOLD 19:36 → UNDODISOB 22:00
DX: R20.2 Paresthesia of skin (principal); R53.1 Weakness; R51.9 Headache, unspecified; R29.701 NIHSS score 1; R20.0 Anesthesia of skin; H53.8 Other visual disturbances; G40.909 Epilepsy, unspecified, not intractable, without status epilepticus; Z20.822 Contact with and (suspected) exposure to COVID-19
CPT/HCPCS: 92977; 93005; 85025; 80048; 36415; 83735; 81025; 85610; 85379; 81003; 84484; 80307; 70450; 70496; 70498; 71045; 70551; 99291; 99292; 87811; Q9967; J2765; J3101; J2405; G0378 ×2